=== PATIENT | male | born 1960 | race Caucasian/White ===

== ENCOUNTER 2019-06-16 06:14 | Day surgery (SDC) | payer OTHER | END 2019-06-16 10:50 | disposition home or self-care (01) | LOC: AMB-ENDOS 06:14 | DX: D12.2 Benign neoplasm of ascending colon (principal); K57.30 Diverticulosis of large intestine without perforation or abscess without bleeding; K64.1 Second degree hemorrhoids; Z12.11 Encounter for screening for malignant neoplasm of colon ==